=== PATIENT | male | born 1995 | race Caucasian/White ===

== ENCOUNTER 2021-02-02 14:15 | Emergency (ER) | payer SELFPAY ==
[2021-02-02 14:24] VITALS: BP 135/79; PULSE 131; RESP 16; TEMP 36.8; O2SAT 96
[2021-02-02 15:08] VITALS: RESP 15
--- NOTE | 2021-02-02 15:09 | ED_ITS ---
Documented by User: JAMEY Juarez 02/02/21 16:10 HPI - Male Genitourinary General: Chief complaint: General Medical Stated complaint: Pain in Groin Time Seen by Provider: 02/02/21 14:40 Source: patient Mode of arrival: ambulatory Limitations: no limitations History of Present Illness: HPI Narrative: Patient is a 25-year-old male who presents to ED today with a complaint of right greater than left testicular pain. Patient tells me he was seen at our ED in 2019 for similar symptoms and diagnosed with infection . He states his pain never fully subsided and has been intermittent since that time. He states today he began having acute onset severe pain. Note in 2019 was reviewed which showed a left-sided spermatocele. He was treated with pain meds and anti-inflammatories and recommended urology follow-up but he never completed. Patient denies penile discharge. Denies new sexual partners or concerns for STD. No genital rashes/lesions. No recent injury or trauma. MD Complaint: testicle pain Onset (ago): hour(s) Duration: constant Location: right testicle and left testicle Severity scale (1-10): 10 Exacerbating factors: other (lying flat) Associated symptoms: Deny dysuria, hematuria, nausea or vomiting Review of Systems Const: Denies: fever(s), chills, body aches, fatigue or malaise Card: Denies: chest pain Resp: Denies: dyspnea GI: Denies: abdominal pain, nausea, vomiting or diarrhea : Reports: testicular pain; Denies: flank pain, difficulty urinating, dysuria, urinary frequency, urinary urgency, urinary hesitancy, difficulty starting urination, change in urine stream, oliguria, hematuria, genital lesions, penile discharge or scrotal swelling Musc: Denies: back pain Skin/Breast: Denies: rash Physical Exam Const: COMMON NORMALS: no acute distress, patient oriented x3, no limitations and alert GENERAL APPEARANCE: cooperative and anxious ORIENTATION/CONSCIOUSNESS: Yes awake, Yes oriented to person, Yes oriented to place and Yes oriented to time HENMT: COMMON NORMALS: normocephalic and atraumatic HEAD & SCALP: normocephalic and atraumatic GI: COMMON NORMALS: Normal to inspection, nondistended, normoactive bowel sounds present, Soft to palpation, non-tender, No hepatosplenomegaly present and no masses INSPECTION: Yes normal to inspection AUSCULTATION: Yes normoactive bowel sounds PALPATION: Yes Soft to palpation and Yes No hepatosplenomegaly present : PENIS: normal penis and circumcised MEATUS: meatus normal SCROTUM: Yes testes descended bilaterally TESTES: Yes testicular lie normal, Yes testicular swelling Testicular swelling laterality: left and Yes testicular tenderness Testicular tenderness laterality: bilateral Neuro: COMMON NORMALS: patient oriented x3 SENSORIUM/ORIENTATION: Yes alert, Yes oriented to person, Yes oriented to place and Yes oriented to time Skin: COMMON NORMALS: no rashes or lesions noted GENERAL SKIN EXAM: no rashes or lesions noted TRAUMA: no lacerations or abrasions Course Vital Signs: Vital signs: Vital Signs Temperature 98.3 F 02/02/21 14:24 Pulse Rate 88 02/02/21 15:54 Respiratory Rate 15 02/02/21 15:54 Blood Pressure 135/79 02/02/21 14:24 Pulse Oximetry 98 02/02/21 15:54 MDM - Male MDM Narrative: Medical decision making narrative: Patient in 2019 was diagnosed with a left spermatocele. Results of his ultrasound today showed the same. Will treat with pain meds/anti-inflammatories, scrotal support, and elevation and have him follow-up with Dr. Morales as lesion continues to be painful and bothersome for patient. Lab Data: Labs: Lab Results 02/02/21 15:20 Urine Color Yellow (Yellow) Urine Appearance Clear (CLEAR) Urine pH 6.5 (5-7) Ur Specific Gravit y 1.020 (1.005-1.030) Urine Protein Neg (Negative) Urine Glucose (UA) Norm (Normal) Urine Ketones Negative (Negative) Urine Blood Neg (Negative) Urine Nitrate Negative (Negative) Urine Bilirubin Neg (Negative) Urine Urobilinogen Norm mg/dL mg/dL (Negative) Ur Leukocyte Sonya ase Negative (Negative) Imaging Data: US scrotum: Radiologist's impression: [address] [address] Ultrasound Report Signed Patient: Juan Leigh Unit #: [id number] : 1995 Acct#:[id number] Age/Sex: 25 / M ADM Date: 02/02/21 Loc: ER Room/Bed: Attending Dr: Ordering Provider/Ordering MD: Park Cheng Date of Service: 02/02/21 Procedure(s): US scrotum [address] Accession Number(s): [id number] Report Number: [id number] WS: [id number] SCROTAL ULTRASOUND EXAMINATION CLINICAL INFORMATION: severe pain COMPARISON: September 26, 2018 FINDINGS: TESTES Normal in size and echotexture, without focal lesion. Color Doppler: Normal color Doppler flow pattern. Right testes size: 4.7 cm x 2.8 cm x 2.6 cm. Left testes size: 4.2 cm x 2.6 cm x 3.1 cm. EPIDIDYMIDES Normal in size and echotexture. Prominent left spermatocele measuring 2.1 x 1.7 cm. Color Doppler: Normal color Doppler flow pattern. HYDROCELE None. VARICOCELE None. OTHER FINDINGS None. US/US scrotum [id number] IMPRESSION: 1. Prominent left spermatocele measuring 2.1 x 1.7 CM. This is stable compared to 2019. 2. Exam is otherwise normal. Dictated By: Michael Conroy MD Signed By: Michael Conroy MD Signed Date/Time: 02/02/21 1559 DD/ 54 Discharge Plan Discharge Patient Disposition: Home Clinical Impression: Spermatocele Condition: Stable Prescriptions: New hydrocodone-acetaminophen 5-325 mg tablet 1 tab PO Q4H PRN (Reason: pain) Qty: 15 RF: 0 Zofran 4 mg tablet 4 mg PO Q6H PRN (Reason: nausea and vomiting) Qty: 14 RF: 0 diclofenac sodium 50 mg tablet,delayed release (DR/EC) 50 mg PO Q12H PRN (Reason: pain) Qty: 20 RF: 0 Discharge Orders: Discharge ED (Routine); Ordered 02/02/21 Ordered By: Park Cheng Referrals: Luther Morales MD [Physician] - Patient Instructions: Spermatocele (ED) Activity Restrictions/Additional Instructions: As we discussed you need to wear supportive tight fitting underwear/briefs. Scrotal elevation and ice can also help with some discomfort (do not apply ice directly to the skin). We will have you follow-up with urology/Dr. Morales for further evaluation as lesion continues to be uncomfortable. You may use pain medications prescribed for severe pain. 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 Given follow up with PCP. Lab Data: Labs: Lab Results 02/02/21 15:20 Urine Color Yellow (Yellow) Urine Appearance Clear (CLEAR) Urine pH 6.5 (5-7) Ur Specific Gravit y 1.020 (1.005-1.030) Urine Protein Neg (Negative) Urine Glucose (UA) Norm (Normal) Urine Ketones Negative (Negative) Urine Blood Neg (Negative) Urine Nitrate Negative (Negative) Urine Bilirubin Neg (Negative) Urine Urobilinogen Norm mg/dL mg/dL (Negative) Ur Leukocyte Sonya ase Negative (Negative) Imaging Data: Other Imaging: Radiologist's impression: [address] [address]Pnufzhpyht ReportSigned Patient: Juan Leigh #: [id number]: 1995Acct#:[id number]/Sex: 25 / MADM Date: 02/02/21Loc: ERRoom/Bed:Attending Dr: Ordering Provider/Ordering MD: Park Cheng Date of Service: 02/02/21 Procedure(s): US scrotum 86553 Accession Number(s): [id number] Report Number: [id number] WS: [id number] SCROTAL ULTRASOUND EXAMINATION CLINICAL INFORMATION: severe pain COMPARISON: September 26, 2018 FINDINGS: TESTES Normal in size and echotexture, without focal lesion. Color Doppler: Normal color Doppler flow pattern. Right testes size: 4.7 cm x 2.8 cm x 2.6 cm. Left testes size: 4.2 cm x 2.6 cm x 3.1 cm. EPIDIDYMIDES Normal in size and echotexture. Prominent left spermatocele measuring 2.1 x 1.7 cm. Color Doppler: Normal color Doppler flow pattern. HYDROCELE None. VARICOCELE None. OTHER FINDINGS None. US/US scrotum [id number] IMPRESSION: 1. Prominent left spermatocele measuring 2.1 x 1.7 CM. This is stable compared to 2019. 2. Exam is otherwise normal. Dictated By:Michael Conroy MDSigned By:Michael Conroy MDSigned Date/Time:02/02/21 1559DD/ 54 Discharge Plan Discharge Patient Disposition: Home Clinical Impression: Spermatocele Condition: Stable Prescriptions: New hydrocodone-acetaminophen 5-325 mg tablet 1 tab PO Q4H PRN (Reason: pain) Qty: 15 RF: 0 Zofran 4 mg tablet 4 mg PO Q6H PRN (Reason: nausea and vomiting) Qty: 14 RF: 0 diclofenac sodium 50 mg tablet,delayed release (DR/EC) 50 mg PO Q12H PRN (Reason: pain) Qty: 20 RF: 0 Discharge Orders: Discharge ED (Routine); Ordered 02/02/21 Ordered By: Park Cheng Referrals: Luther Morales MD [Physician] - Patient Instructions: Spermatocele (ED) Activity Restrictions/Additional Instructions: As we discussed you need to wear supportive tight fitting underwear/briefs. Scrotal elevation and ice can also help with some discomfort (do not apply ice directly to the skin). We will have you follow-up with urology/Dr. Morales for further evaluation as lesion continues to be uncomfortable. You may use pain medications prescribed for severe pain. 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
--- NOTE | 2021-02-02 15:47 | DCPLANNER ---
tax manager was asked to schedule a follow up appointment for patient with Dr. Morales. tax manager called the office of Dr. Morales, spoke with Fabiola, gave clinic patients information. tax manager was told that patients information would be printed and reviewed. Clinic will call patient with appointment information.
[2021-02-02 15:53] LABS: Add Urine Microscopic? NO; Charge for UA Resulting for Rev
[2021-02-02 15:54] VITALS: PULSE 88; RESP 15; O2SAT 98
[2021-02-02 16:00] LABS: Urine Appearance Clear (CLEAR); Urine Color Yellow (Yellow)
[2021-02-02 16:01] LABS: Bilirubin Urine Neg (Negative); Blood Urine Neg (Negative); Glucose Urine UA Norm (Normal); Ketones Urine Negative (Negative); Leukocyte Esterase Urine Negative (Negative); Nitrate Urine Negative (Negative); Protein Urine Neg (Negative); Urobilinogen Urine Norm (Negative); pH Urine 6.5 (5-7)
--- NOTE | 2021-03-10 12:29 | DCPLANNER ---
Patient has a follow up appointment scheduled for Saturday, March 13, [address] at 9:[address] Morales. Clinic will call patient with appointment information.
--- NOTE | 2021-03-16 16:26 | DCPLANNER ---
Patient had a follow up appointment scheduled for 03.13.[address] Morales - patient did attend appointment.
== END 2021-02-02 15:54 | disposition home or self-care (01) ==
PROVIDERS: Emergency Provider Physician Assistant
DX: N43.40 Spermatocele of epididymis, unspecified (principal)
CPT/HCPCS: 76870; 81003; 99282

== ENCOUNTER → 2021-03-13 08:53 | Outpatient (BNVA) | payer SELFPAY | PROVIDERS: PCP Urology; Visit Provider Urology | DX: N43.40 Spermatocele of epididymis, unspecified (principal) | CPT/HCPCS: 81003 ==